=== PATIENT | male | born 1970 | race Caucasian/White ===

== ENCOUNTER 2018-05-19 20:23 | Outpatient (REF) | payer OTHER, SELFPAY ==
[2018-05-19 20:30] VITALS: BP 147/121; PULSE 115; RESP 20; TEMP 36.9; O2SAT 96
--- NOTE | 2018-05-19 20:43 | DI.RAD_ITS ---
SYMPTOM/DIAGNOSIS: ROTATIONAL INJURY, PAIN RIGHT ANKLE: Three views. No priors. No acute fracture or dislocation is identified. There does appear to be a mild periostitis at the distal shaft of the right fibula, best appreciated on the AP view. No associated soft tissue abnormality is seen. There is normal mineralization of the bone. No lytic or sclerotic lesions are seen. IMPRESSION: No acute fracture or dislocation. Mild periostitis along the distal shaft of the right fibula. This could be a chronic finding. An occult, subacute or old fracture cannot be excluded. Osteomyelitis is considered less likely.
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
--- NOTE | 2018-05-19 21:16 | DI.VRAD_ITS ---
EXAM: XR Right Ankle Complete, 3 or more Views EXAM DATE/TIME: 05/19/2018 8:43 PM CLINICAL HISTORY: 48 years old, male; Signs and symptoms; Other: Rotational injury, pain latera TECHNIQUE: XR Right ankle 3 or more views. COMPARISON: No relevant prior studies available. FINDINGS: Bones/joints: No acute fracture or subluxation. Short focus of hazy periostitis along the distal fibular diaphysis. Soft tissues: Lateral ankle soft tissue swelling. Mild generalized edema in the calf. IMPRESSION: 1. No acute bony pathology. 2. Short focus of hazy periostitis along the distal fibular diaphysis. Could relate to hyperostosis in the setting of chronic edema or venous stasis, osteomyelitis considered less likely based on morphology. Dictated and Authenticated by: Louise Alarcon MD. Ordering:ANDIE TADEO MD
[2018-05-19 21:43] LABS: Abs Immature Grans 0.05 k/cumm (0.0-0.09); Absolute Eosinophil Count 0.36 k/cumm (0.0-0.7); Absolute Lymphocyte Count 2.71 k/cumm (1.2-3.4); Absolute Monocyte Count 0.99 k/cumm (0.11-0.7); Basophils % 0.6; Eosinophils % 3.3; HCT 45.5 % (40.0-50.0); HGB 15.6 g/dL (13.5-17.5); Immature Grans % 0.5; Lymphocytes % 24.9; Mean Corp. HGB Concentration 34.3 g/dL (32.0-36.0); Mean Corpuscular Hemoglobin 28.8 pg (27.0-33.0); Mean Corpuscular Volume 84.1 fL (80-95); Mean Platelet Volume 10.1 fL (8.0-11.0); Monocytes % 9.1; Neutrophils % 61.6; Platelet Count 334 x1000/uL (130-400); RBC 5.41 m/cumm (4.50-6.00); RBC Distribution Width 13.7 % (11.8-14.1)
[2018-05-19 21:44] LABS: Absolute Basophil Count 0.07 k/cumm (0.0-0.2); Absolute Neutrophil Count 6.71 k/cumm (1.2-6.7)
[2018-05-19 22:02] LABS: ALT 30 U/L (12-78); AST 20 U/L (15-37); Albumin 3.5 g/dL (3.4-5.0); Alkaline Phosphatase 94 U/L (46-116); BUN 14 mg/dL (7-18); Bilirubin, Total 0.2 mg/dL (0.2-1.0); CREATININE 1.28 mg/dL (0.70-1.30); Chloride 100 mmol/L (98-107); Estimated GFR 59.98 (mL/min/1.73m2); Glucose 101 mg/dL (70-100); Potassium 3.7 mmol/L (3.5-5.1); Sodium 136 mmol/L (136-145); Total Protein 7.7 g/dL (6.4-8.2)
[2018-05-19 22:28] VITALS: BP 132/83; PULSE 97; RESP 18; TEMP 36.7; O2SAT 95
--- NOTE | 2018-05-21 11:21 | NUR.NOTE ---
Nursing Note: [facility] left message with patient to call and schedule a follow up appointment to establish PCP after being seen in ER.
[2018-05-28 19:58] LABS: C-Reactive Protein 1.04 mg/dL (0.0-0.3)
== END 2018-05-28 12:35 ==
LOC: NCHCN 05-28 12:15
PROVIDERS: Emergency Provider Physician Assistant; PCP Internal Medicine; Visit Provider Family Medicine
DX: M86.161 Other acute osteomyelitis, right tibia and fibula (principal); S93.401A Sprain of unspecified ligament of right ankle, initial encounter; X50.9XXA Other and unspecified overexertion or strenuous movements or postures, initial encounter
CPT/HCPCS: 29515; 36415; 80053; 99283; 73610; 85025; 86140; L1902

== ENCOUNTER 2018-08-29 12:13 | Emergency (ER) | payer OTHER, SELFPAY ==
[2018-08-29 12:15] VITALS: BP 138/101; PULSE 98; RESP 16; TEMP 36.5; O2SAT 96
--- NOTE | 2018-08-29 12:16 | W.ED.GENAD ---
Discharge Plan Disposition Patient Disposition: HOME Condition: Stable Discharge Details Chief Complaint: Orthopedic Clinical Impression: Left wrist sprain Primary Care Provider: Kendrick Gonzalez ED Provider: Karl Wilson Home Meds and New Rx's Prescriptions: Continued ibuprofen 800 mg Tablet 800 mg PO TID PRNRF: 0 Discharge Instructions Instructions: Wrist Sprain (ED) Additional Instructions: Wear the splint until you are pain free. If you are not pain free in a week see your primary care provider you can take 1000mg tylenol every 6 hours and 800mg ibuprofen every 8 hours Stand Alone Forms: Work Release Medical Decision Making 48 yo male comes in with left wrist pain. He slipped and fell back on stairs, tried to grab the railing with his left hand and missed and landed on his left wrist. Denies loc, hitting head and has no neck pain even on rom, no headache, no chest pain, dyspnea or abdominal pain. Has pain in anterior left wrist. No sweling or deformity with full rom of the wrist and hand. No snuffbox tenderness. will xray to eval for fx, suspect contusion vs sprain xray negative on my read, still no snuffbox tenderness and full rom. Do not feel he requires ortho f/u , will place in universal splint for comfort and advised f/u with pcp if not better in a week Differential Diagnosis sprain, contusion, fx Imaging Data Radiologic Study: Attestation: I personally reviewed and interpreted this imaging study as follows: Imaging: X-Ray My impression: no acute findings HPI General Mode of arrival: ambulatory. Date/Time Provider Initiated Documentation: 08/29/18 12:16. Limitations to Documentation: no limitations. Information obtained by: patient. History of Present Illness 48 year old M presents to the emergency department with the chief complaint of left wrist pain , described as moderate, Quality is described as aching, and is localized to the left and upper extremity. Patient reports no radiation. Patient started experiencing this hour(s) (1) and it has been constant. No relieving factors improve symptom(s), No exacerbating factors reported . Patient did receive the following treatments prior to arrival, NSAID Related Data Home Medications Medication Instructions Recorded Confirmed ibuprofen 800 mg PO TID PRN 05/19/18 08/29/18 Allergies Allergy/AdvReac Type Severity Reaction Status Date / Time No Known Allergies Allergy Unverified 08/29/18 12:21 General ANDERSON: 4 Review of Systems Review of Systems All systems reviewed & are unremarkable except as noted in HPI and below Constitutional Denies chills and Denies fever(s) Cardiovascular Denies chest pain and Denies dyspnea Respiratory Denies cough and Denies dyspnea Gastrointestinal Denies abdominal pain, Denies nausea and Denies vomiting Musculoskeletal Denies joint swelling Integumentary/Breasts Denies rash PFS Social History Smoking and Tabacco status: Never Exam Const General: no acute distress Orientation: alert HENPR Head: normal to inspection Ears: external ears normal General nose exam: external nose normal Mouth: moist mucous membranes Eyes General: appearance normal, both eyes and all related structures Neck Neck: normal visual inspection Resp Effort & Inspection: normal respiratory effort and able to speak in complete sentences Cardio Rate: regular rate Skin General skin exam: no rashes or lesions noted Neuro General: alert and oriented x3 Extrem General: normal to inspection, full ROM and normal capillary refill Psych Mental Status: mental status grossly normal
--- NOTE | 2018-08-29 12:23 | DI.RAD_ITS ---
SYMPTOMS/DIAGNOSIS: PAIN, S/P FALL LEFT WRIST: Three views. No priors. No bone or joint abnormality is identified. No radiopaque foreign bodies are seen in the soft tissues. IMPRESSION: No acute abnormality.
--- NOTE | 2018-08-29 12:33 | ED.GENADUL_ITS ---
Discharge Plan Disposition Patient Disposition: HOME Condition: Stable Discharge Details Chief Complaint: Orthopedic Clinical Impression: Left wrist sprain Primary Care Provider: Kendrick Gonzalez ED Provider: Karl Wilson Home Meds and New Rx's Prescriptions: Continued ibuprofen 800 mg Tablet 800 mg PO TID PRNRF: 0 Discharge Instructions Instructions: Wrist Sprain (ED) Additional Instructions: Wear the splint until you are pain free. If you are not pain free in a week see your primary care provider you can take 1000mg tylenol every 6 hours and 800mg ibuprofen every 8 hours Stand Alone Forms: Work Release Medical Decision Making 48 yo male comes in with left wrist pain. He slipped and fell back on stairs, tried to grab the railing with his left hand and missed and landed on his left wrist. Denies loc, hitting head and has no neck pain even on rom, no headache, no chest pain, dyspnea or abdominal pain. Has pain in anterior left wrist. No sweling or deformity with full rom of the wrist and hand. No snuffbox tenderness. will xray to eval for fx, suspect contusion vs sprain xray negative on my read, still no snuffbox tenderness and full rom. Do not feel he requires ortho f/u , will place in universal splint for comfort and advised f/u with pcp if not better in a week Differential Diagnosis sprain, contusion, fx Imaging Data Radiologic Study: Attestation: I personally reviewed and interpreted this imaging study as follows: Imaging: X-Ray My impression: no acute findings HPI General Mode of arrival: ambulatory . Date/Time Provider Initiated Documentation: 08/29/18 12:16 . Limitations to Documentation: no limitations . Information obtained by: patient . History of Present Illness 48 year old M pr esents to the emergency department with the chief complaint of left wrist pain , described as moderate, Quality is described as aching, and is localized to the left and upper extremity. Patient reports no radiation. Patient started experiencing this hour(s) (1) and it has been constant. No relieving factors improve symptom(s), No exacerbating factors reported . Patient did receive the following treatments prior to arrival, NSAID Related Data Home Medications Medication Instructions Recorded Confirmed ibuprofen 800 mg PO TID PRN 05/19/18 08/29/18 Allergies Allergy/AdvReac Type Severity Reaction Status Date / Time No Known Allergies Allergy Unverified 08/29/18 12:21 General ANDERSON: 4 Review of Systems Review of Systems All systems reviewed & are unremarkable except as noted in HPI and below Constitutional Denies chills and Denies fever(s) Cardiovascular Denies chest pain and Denies dyspnea Respiratory Denies cough and Denies dyspnea Gastrointestinal Denies abdominal pain, Denies nausea and Denies vomiting Musculoskeletal Denies joint swelling Integumentary/Breasts Denies rash PFS Social History Smoking and Tabacco status: Never Exam Const General: no acute distress Orientation: alert HENMT Head: normal to inspection Ears: external ears normal General nose exam: external nose normal Mouth: moist mucous membranes Eyes General: appearance normal, both eyes and all related structures Neck Neck: normal visual inspection Resp Effort & Inspection: normal respiratory effort and able to speak in complete sentences Cardio Rate: regular rate Skin General skin exam: no rashes or lesions noted Neuro General: alert and oriented x3 Extrem General: normal to inspection, full ROM and normal capillary refill Psych Mental Status: mental status grossly normal
== END 2018-08-29 12:53 | disposition home or self-care (01) ==
PROVIDERS: Emergency Provider Emergency Medicine; PCP Internal Medicine
DX: S63.502A Unspecified sprain of left wrist, initial encounter (principal); W00.1XXA Fall from stairs and steps due to ice and snow, initial encounter; X50.9XXA Other and unspecified overexertion or strenuous movements or postures, initial encounter
CPT/HCPCS: 99283; 73110; L3908

== ENCOUNTER 2020-09-07 02:51 | Outpatient (CLI) | payer OTHER, SELFPAY ==
[2020-09-07 10:14] LABS: CREATININE 1.3 mg/dL (0.70-1.30); Calculated LDL 202 mg/dL (<100); Cholesterol 283 mg/dL (<200); Estimated GFR 58.43 (mL/min/1.73m2); HDL Cholesterol 40 mg/dL (40-60); TSH (W/Ref FT4) 2.34 uIU/mL (0.36-3.74); Triglyceride 208 mg/dL (<150)
[2020-09-07 18:18] LABS: PSA, Screening 0.5 ng/mL (0.0-3.5)
== END 2020-09-07 02:52 | disposition home or self-care (01) ==
LOC: LBO 02:52
PROVIDERS: PCP Nurse Practitioner Family; Visit Provider Nurse Practitioner Family
DX: Z13.220 Encounter for screening for lipoid disorders (principal); Z13.1 Encounter for screening for diabetes mellitus; Z13.29 Encounter for screening for other suspected endocrine disorder; Z12.5 Encounter for screening for malignant neoplasm of prostate; I10 Essential (primary) hypertension
CPT/HCPCS: 36415; 80061; 84153; 82565; 83036; 84443

== ENCOUNTER 2020-10-18 20:55 | Emergency (ER) | payer OTHER, SELFPAY ==
[2020-10-18] VITALS (12 sets, daily range): BP systolic 165–197; BP diastolic 110–136; PULSE 106–112; RESP 12–25; TEMP 36.9; O2SAT 96–98
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
[2020-10-18 21:09] LABS: Abs Immature Grans 0.06 10^3/uL (0.0-0.06); Absolute Basophil Count 0.05 10^3/uL (0.0-0.2); Absolute Eosinophil Count 0.34 10^3/uL (0.0-0.7); Absolute Lymphocyte Count 4.01 10^3/uL (1.2-3.4); Absolute Monocyte Count 1.07 10^3/uL (0.1-0.8); Basophils % 0.4; HCT 45.3 % (40.0-50.0); Immature Grans % 0.5; Lactate 1.7 mmol/L (0.6-1.4); Lymphocytes % 35.3; MCH 28.5 pg (27.0-33.0); MCHC 33.1 % (32.0-36.0); MCV 86.1 fL (80-95); MPV 9.8 fL (8.0-11.0); Monocytes % 9.4; Neutrophils % 51.4; Nucleated RBC 0 %; Platelet Count 334 10^3/uL (130-400); RBC 5.26 10^6/uL (4.36-5.78); RDW 13.3 % (11.8-14.1); RDW-SD 41.9 fL; WBC 11.36 10^3/uL (4.4-10.8)
--- NOTE | 2020-10-18 21:19 | NUR.NOTE ---
Nursing Note: Pt Radha called 5 times without answer atrequest of pt. Radha answers on 6th call, updated with care and incident.Pt to call his back when return from CT.
[2020-10-18] MEDS: Omnipaque 350 MG/ML 100 ML BTL IV (21:20)
[2020-10-18] MEDS: Normal Saline - Diluent 50 ML VIAL IV (21:21)
[2020-10-18 21:22] LABS: Absolute Neutrophil Count 5.84 10^3/uL (1.2-6.7)
[2020-10-18] MEDS: Normal Saline Flush 10 ML SYR IVP (21:22)
[2020-10-18 21:26] LABS: ALT 36 U/L (16-63); AST 21 U/L (15-37); Albumin 3.6 g/dL (3.4-5.0); Alkaline Phosphatase 92 U/L (46-116); Anion Gap 10.7 mmol/L (3-11); BUN 15 mg/dL (7-18); Bilirubin, Total 0.2 mg/dL (0.2-1.0); CO2 28.3 mmol/L (21.0-32.0); CREATININE 1.4 mg/dL (0.70-1.30); Calcium 9.1 mg/dL (8.5-10.1); Chloride 102 mmol/L (98-107); Estimated GFR 53.64 (mL/min/1.73m2); Glucose 102 mg/dL (74-106); Lipase 88 U/L (73-393); Potassium 3.7 mmol/L (3.5-5.1); Sodium 141 mmol/L (136-145); Total Protein 7.8 g/dL (6.4-8.2)
[2020-10-18] MEDS: Normal Saline 1,000 ML 1000 ML IV (21:40)
--- NOTE | 2020-10-18 21:53 | NUR.NOTE ---
Nursing Note: Pt reports his two BP medications he has picked up and is at home and has not taken.
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
[2020-10-18] MEDS: Ketorolac 30 MG/ML VIAL IVP (22:17)
[2020-10-18 22:27] LABS: Bilirubin Negative (Negative); Blood Negative (Negative); Clarity Clear (Clear); Glucose Negative (Negative); Ketones Negative (Negative); Leukocyte Esterase Negative (Negative); Nitrite Negative (Negative); Urobilinogen 0.2 EU/dL (Up TO 0.2)
== END 2020-10-18 22:46 | disposition home or self-care (01) ==
PROVIDERS: Emergency Provider Student in an Organized Health Care Education/Training Program; PCP Nurse Practitioner Family
DX: S30.1XXA Contusion of abdominal wall, initial encounter (principal); V43.52XA Car driver injured in collision with other type car in traffic accident, initial encounter; R10.32 Left lower quadrant pain
CPT/HCPCS: 36415; 80053; 83690; 96361; 96374; 99285; 74177; 81003; 83605; 85025; J1885; J3490

== ENCOUNTER 2021-08-28 20:06 | Emergency (ER) | payer OTHER, SELFPAY ==
[2021-08-28 20:16] VITALS: BP 158/105; PULSE 97; RESP 18; TEMP 36.5; O2SAT 97
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
[2021-08-28] MEDS: predniSONE 20 MG TAB 40 MG PO (21:08)
== END 2021-08-28 22:31 | disposition home or self-care (01) ==
PROVIDERS: Emergency Provider Physician Assistant; PCP Nurse Practitioner Family
DX: M10.071 Idiopathic gout, right ankle and foot (principal)
CPT/HCPCS: 99283; J7512

== ENCOUNTER 2021-08-30 15:14 | Outpatient (REF) | payer OTHER, SELFPAY ==
[2021-08-30 17:57] LABS: Uric Acid 6.3 mg/dL (3.5-7.2)
== END 2021-08-30 15:15 | disposition home or self-care (01) ==
LOC: LBN 15:14
PROVIDERS: PCP Nurse Practitioner Family; Visit Provider Nurse Practitioner Family
DX: M10.9 Gout, unspecified (principal)
CPT/HCPCS: 84550

== ENCOUNTER 2021-11-01 16:16 | Outpatient (REF) | payer OTHER, SELFPAY ==
[2021-11-03 12:27] LABS: COVID-19 RT-PCR UVMMC Result Negative (Negative)
== END 2021-11-01 16:17 | disposition home or self-care (01) ==
LOC: LBN 16:16
PROVIDERS: PCP Nurse Practitioner Family; Visit Provider Nurse Practitioner Family
DX: Z20.822 Contact with and (suspected) exposure to COVID-19 (principal)
CPT/HCPCS: U0003

== ENCOUNTER 2022-11-19 15:23 | Outpatient (CLI) | payer OTHER, SELFPAY ==
--- NOTE | 2022-11-19 14:30 | DI.RAD_ITS ---
Exam(s) XR FINGER RT MIDDLE EXAM: XR FINGER RT MIDDLE CLINICAL HISTORY: proximal right 3rd finger pain,[id number]. TECHNIQUE: 2D digital imaging was performed. Three views. COMPARISON: No exams were available for comparison FINDINGS: BONES: No acute fracture is present. No bony destructive lesion is seen. JOINTS: No dislocation present. Minimal degenerative changes of the interphalangeal joints and metac arpophalangeal joints. SOFT TISSUE: Normal. IMPRESSION: Minimal degenerative changes. DATA REPOSITORY: RADIATION DOSE DELIVERED:
== END 2022-11-19 15:43 ==
LOC: DI 15:30
PROVIDERS: PCP Nurse Practitioner Family; Visit Provider Physician Assistant
DX: M79.644 Pain in right finger(s) (principal)
CPT/HCPCS: 73140

== ENCOUNTER 2023-01-29 16:02 | Outpatient (CLI) | payer OTHER, SELFPAY ==
--- NOTE | 2023-01-29 11:15 | DI.RAD_ITS ---
Exam(s) XR LUMBAR SPINE COMPLETE EXAM: XR LUMBAR SPINE COMPLETE CLINICAL HISTORY: evaluate pathology,lumbar strain,s39.012a. TECHNIQUE: 2D digital imaging was performed of the lumbar spine. Five images were obtained. AP, la teral, right oblique, left oblique and L5-S1 spot views were obtained. COMPARISON: No exams were available for comparison FINDINGS: BONES: No fracture or destructive lesion. There are small endplate osteophytes seen at L3-4 and L4-L5 . Mild degenerative changes of the facets are seen at L5-S1. DISKS: Intervertebral disc spaces are maintained. ALIGNMENT: Lumbar spinal alignment is within normal limits. No spondylolysis or spondylolisthesis. SOFT TISSUE: Normal. IMPRESSION: Mild degenerative changes in the lumbar spine. DATA REPOSITORY: RADIATION DOSE DELIVERED:
== END 2023-01-29 16:22 ==
LOC: DI 16:05
PROVIDERS: PCP Nurse Practitioner Family; Visit Provider Nurse Practitioner Family
DX: S39.012A Strain of muscle, fascia and tendon of lower back, initial encounter (principal); M51.36 Other intervertebral disc degeneration, lumbar region; X58.XXXA Exposure to other specified factors, initial encounter
CPT/HCPCS: 72110

== ENCOUNTER 2023-08-22 21:38 | Emergency (ER) | payer SELFPAY ==
[2023-08-22 21:40] VITALS: BP 200/119; PULSE 98; RESP 16; TEMP 37.3; O2SAT 97
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
== END 2023-08-22 22:10 | disposition home or self-care (01) ==
PROVIDERS: Emergency Provider Physician Assistant; PCP Nurse Practitioner Family
DX: M25.531 Pain in right wrist (principal); M77.8 Other enthesopathies, not elsewhere classified
CPT/HCPCS: 99282; 99283

== ENCOUNTER 2024-04-09 21:01 | Emergency (ER) | payer BC, SELFPAY ==
[2024-04-09 21:03] VITALS: BP 146/109; PULSE 112; RESP 18; TEMP 36.1
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
[2024-04-09 21:55] VITALS: BP 159/120; PULSE 104; RESP 18; O2SAT 96
[2024-04-09] MEDS: Cetirizine 10 MG TAB PO (21:55)
[2024-04-09] MEDS: Triamcinolone 0.1% OINT 15 GM TUBE TP (21:55)
== END 2024-04-09 21:58 | disposition home or self-care (01) ==
LOC: ER 21:47
PROVIDERS: Emergency Provider Nurse Practitioner Family; PCP Nurse Practitioner Family
DX: R21 Rash and other nonspecific skin eruption (principal)
CPT/HCPCS: 99283

== ENCOUNTER 2024-04-20 16:28 | Outpatient (CLI) | payer BC, SELFPAY ==
[2024-04-20 16:57] LABS: ALT 23 U/L (16-63); AST 15 U/L (15-37); Albumin 3.2 g/dL (3.4-5.0); Alkaline Phosphatase 89 U/L (46-116); Anion Gap 7.7 mmol/L (3-11); BUN 9 mg/dL (7-18); Bilirubin, Total 0.36 mg/dL (0.2-1.0); CO2 29.3 mmol/L (21.0-32.0); CREATININE 1.1 mg/dL (0.70-1.30); Calculated LDL 99 mg/dL (<100); Chloride 105 mmol/L (98-107); Cholesterol 191 mg/dL (<200); Estimated GFR 79.77 (mL/min/1.73m2); Glucose 101 mg/dL (74-106); HDL Cholesterol 43 mg/dL (40-60); Sodium 142 mmol/L (136-145); TSH (W/Ref FT4) 1.51 uIU/mL (0.36-3.74); Total Protein 7.2 g/dL (6.4-8.2); Triglyceride 246 mg/dL (<150)
== END 2024-04-20 16:29 | disposition home or self-care (01) ==
LOC: LBO 16:36
PROVIDERS: PCP Nurse Practitioner Family; Visit Provider Nurse Practitioner Family
DX: Z13.220 Encounter for screening for lipoid disorders (principal); E78.5 Hyperlipidemia, unspecified; E66.09 Other obesity due to excess calories; Z68.37 Body mass index [BMI] 37.0-37.9, adult; I10 Essential (primary) hypertension
CPT/HCPCS: 36415; 80053; 80061; 84443

== ENCOUNTER 2024-05-29 07:12 | Day surgery (SDC) | payer BC, SELFPAY ==
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
--- NOTE | 2024-05-28 21:42 | W.COLOREPORT ---
Date of service: 05/29/24 Time of Service: 10:00 Colonoscopy Report Date of procedure: 05/29/24 Pre-op diagnosis general: CRC screen/constipation Post-op diagnosis procedure note: other Surgeon: Vikki Quiñonez Anesthesia Type: General:No Airway Complications: None Disposition: same day Prep: Miralax/Dulcolax Procedure Description: After informed consent was obtained, explaining risks of the procedure, including but not limits to: bleeding, infections, complications of anesthesia, perforations (which may require antibiotics and /or surgery and stay in the hospital), and abdominal pain/cramping. The patient was taken to the procedure room and placed in a left decubitous position. Monitors were applied and a time out was done. The patients name, date of , procedure, allergies to medications and metal in their body was reviewed. The patient was then sedated. Once sedated and comfortable a rectal exam was done. External exam was normal. Internal exam revealed a normal sphincter tone and no palpable masses. The prostate: no palpable masses. The previously lubricated Olympus scope was then introduced (see RN notes for scope number) and retrofelexed. No internal hemorrhoids were identified. The scope was then advanced to the cecum without difficulty. The TI and appendiceal orifice were identified. The scope was then slowly retracted over 23 minutes back into the rectum. Polyps: peduculated 1.5cm polyp on a long thin stalk at 80cm. This was removed with a hot snare. All of the specimen was retrieved. A clip is placed across the defect This will be sent to pathology. There is no bleeding noted from the polypectomy site. Diverticula: pt had a moderate amount of small mouthed diverticula in the sigmoid colon. There were no signs of active bleeding or infection. The mucosa is pink and healthy w/ a normal vascular pattern. The scope was removed, and the patient was woken up and taken back to Same day surgery in stable condition. The patient tolerated the procedure well and there were no immediate complications. Follow up: The patient should follow up in 2-3 years, path pd, unless they develop changes in bowel habits or other new gastrointestinal complaints. [place] Bowel Prep [place] Bowel Prep Right Colon: 3 Left Colon: 3 Transverse Colon: 3 Total Score: 9
--- NOTE | 2024-05-28 21:43 | PDOC.DSDIS_ITS ---
Date of service: 05/29/24 Time of Service: 10:05 Discharge Plan Disposition Patient Disposition: Home Condition: Good Discharge Details Reason For Visit: CRC screening Attending Provider: Vikki Quiñonez Primary Care Provider: Joel Arboleda Home Meds and New Rx's Prescriptions: Continued triamcinolone acetonide 0.5 % cream 1 applic topical TID Qty: 15 0RF losartan 100 mg tablet 100 mg PO DAILY Qty: 90 4RF hydrochlorothiazide 12.5 mg capsule 12.5 mg PO DAILY Qty: 90 3RF atorvastatin 10 mg tablet 10 mg PO DAILY Qty: 90 3RF acetaminophen [Tylenol Extra Strength] 500 mg tablet 1,000 mg PO Q6H PRN albuterol sulfate [Ventolin HFA] 90 mcg/actuation HFA aerosol inhaler 2 puff inhalation Q6H PRN (Reason: shortness of breath or wheezing) Qty: 8.5 3RF semaglutide (weight loss) 0.5 mg/0.5 mL pen injector 0.5 mg subcut QWEEK Qty: 2 0RF Rx Instructions: administer weeks 1 through 4 of therapy desloratadine 5 mg tablet 5 mg PO DAILY Qty: 90 3RF colchicine 0.6 mg tablet 0.6 mg PO BID PRN ibuprofen 800 mg Tablet 800 mg PO TID PRN Discontinued polyethylene glycol 3350 17 gram/dose powder 238 g PO ONCE Qty: 238 0RF Rx Instructions: take per colonoscopy instructions bisacodyl [Dulcolax (bisacodyl)] 5 mg tablet,delayed release (DR/EC) 5 mg PO ONCE Qty: 4 0RF Rx Instructions: take per colonoscopy instructions Discharge Instructions Additional Instructions: [facility] Colonoscopy Post- Op Instructions Instructions for Everyone who is given Anesthesia: For your safety, please do the following for the next twenty-four (24) hours: *Do Not operate a motor vehicle (car, truck, motorcycle, etc.) *Do Not drink alcoholic beverages or use any recreational drugs for the first 24 hours or while taking pain medications. The medications in your body may have a reaction that can be dangerous. *Do Not make any important decisions or sign any important papers. Findings: Large colon polyp Diverticula. Make sure you are moving your bowels on a regular basis and not straining. If you find you having problems with constipation or straining, then it is recommended you start a fiber product daily such as Metamucil Follow up: My office will send you a letter with the results of the pathology and when we want you to repeat the colonoscopy. Most likely 1 to 2 years time. -Okay to resume Ozempic on Saturday 1. No lifting over 20 pounds or strenuous activity for the first 24 hours after your procedure. After 24 hours there are no restrictions on your activity but you may feel fatigued for a few days. 2. After you arrive home you may have a light meal and return to your normal diet as you can tolerate it without feeling sick to your stomach. 3. You may have a bloated, gaseous feeling in your belly (abdomen) after a colonoscopy. Passing gas and belching will help. Walking or lying down on your left side with your knees flexed may relieve the discomfort. Call the office at [phone] (Office) or [phone] (Hospital) right away if you notice any of the following: a.Vomiting of blood or ?coffee ground stools?. b.Rectal bleeding 1Tbsp, blood clots or continuous bleeding. c.Severe belly (abdominal) pain. d.A hard distended belly (abdomen) and an inability to pass gas. 4. Please don?t expect to have a normal BM (bowel movement) for 2-3 days after your procedure. 5. If there are questions regarding the findings of your procedure, please contact your doctor 6. If you are unable to contact your doctor with a problem, contact the hospital at [phone]. 7. Continue all your regular medications unless directed otherwise. I understand the above instructions and have no questions. Signature of Patient or Adult Escort Name of Responsible Adult Escort Signature of Nurse Date/Time Stand Alone Forms: Anesthesia Discharge Inst., Ayleen Toussaint ([facility]) Activity:: see above Diet:: see above Discharge Orders Discharge Orders: Discharge Order (Routine); Ordered 05/29/24 Ordered By: Vikki Quiñonez DS: Diagnosis Discharge Diagnosis (1) HTN (hypertension): Status: Chronic (2) Hyperlipidemia: Status: Acute (3) Pre-diabetes: Status: Acute (4) Obesity: Status: Chronic (5) GERD (gastroesophageal reflux disease): Status: Chronic (6) Umbilical hernia: Status: Acute (7) Asthma: Status: Chronic (8) Chronic constipation: Status: Acute Asessment and Plan: The patient is seen and examined after their colonoscopy.? The patient has been able to pass gas.? They are not having abdominal pain.? They have been able to tolerate liquids and a snack.? They do not have any nausea or vomiting.? They are not having any chest pain or shortness of breath.??? They are not having any rectal bleeding. Their vital signs have been stable-see nursing notes. We discussed findings during their colonoscopy, and any biopsies that were done/polyps that were removed. The patient will be sent a letter with any biopsy results, and when to repeat the colonoscopy.-see discharge instructions. Patient was given explicit instructions to follow-up regarding colonoscopy-refer to discharge instructions.? We reviewed resumption of medications. Patient verbalized understanding and discharged in stable and satisfactory condition- See nursing notes. (9) Villous adenoma of colon: Status: Acute
[2024-05-29 07:31] VITALS: BP 143/88; PULSE 94; RESP 18; TEMP 36.4; O2SAT 96
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
[2024-05-29 08:01] VITALS: BMI 38.3
--- NOTE | 2024-05-29 09:17 | BOWEL_PTH ---
PATIENT: Karl Finney JR LOC: [facility] U#:[id number] AGE/SX: 54/M ROOM: RE05/29/[address]: Vikki Quiñonez : 1970 BED: DIS: 05/29/2024 SPEC #: [id number] RECD: 05/29/24 13:02 STATUS: JOSE MANUEL REEduarda #: [id number] RATNA: 05/29/24 09:[address]: Vikki Quiñonez DEPT: Surgical Specimen RECD BY: Helen George ENTERED: 05/29/24 13:03 SP TYPE: Bowel OTHR DR: Joel Arboleda, PHOTOGRAPHIC LABORATORY TECHNICIAN Tissues: 1 - BIOPSY BOWEL Procedures: GROSS AND MICRO LEVEL 4 Comments: [id number]
[2024-05-29 09:39] VITALS: BP 120/85; PULSE 88; RESP 16; TEMP 36.1; O2SAT 95
--- NOTE | 2024-05-29 09:48 | W.ANESPOSTOP ---
Postoperative Evaluation Date, Time and Location Date Performed: 05/29/24 Time Performed: 09:40 Patient Location: Day Surgery Unit Vital Signs Most Recent Imported Vital Signs: Most Recent Vital Signs Temp Pulse Resp BP Pulse Ox 36.1 C L 88 16 120/85 95 05/29/24 09:39 05/29/24 09:39 05/29/24 09:39 05/29/24 09:39 05/29/24 09:39 Pain Score Most Recent Pain Score: Most Recent Pain Score Pain Level 0 05/29/24 09:39 Assessment Mental Status: Awake (Alert & Oriented to Patient Baseline) Airway and Respiratory Function: Patent airway with normal (patient baseline) respiratory exam Cardiovascular Function: Hemodynamically Stable Hydration Status: Adequately Hydrated Nausea & Vomiting: No Nausea or Vomiting Pain: Pt. Denies Any Pain Peripheral Nerve Block: Patient did not receive a nerve block
[2024-05-29 10:15] VITALS: BP 125/84; PULSE 82; RESP 16; TEMP 36; O2SAT 95
== END 2024-05-29 10:48 | disposition home or self-care (01) ==
LOC: SUR 07:12
PROVIDERS: PCP Nurse Practitioner Family; Visit Provider Surgery
PROC: 0DJD8ZZ Inspection of Lower Intestinal Tract, Via Natural or Artificial Opening Endoscopic (ICD-10-PCS; CPT 45378; principal; 2024-05-29 08:45)
DX: I10 Essential (primary) hypertension (principal); R73.03 Prediabetes; Z12.11 Encounter for screening for malignant neoplasm of colon; D12.4 Benign neoplasm of descending colon; K57.30 Diverticulosis of large intestine without perforation or abscess without bleeding
CPT/HCPCS: 45385; 88305; J2003; J2704

== ENCOUNTER 2024-09-17 12:53 | Outpatient (CLI) | payer OTHER, SELFPAY ==
--- NOTE | 2024-09-17 09:45 | DI.RAD_ITS ---
Exam(s) XR SHOULDER RT COMPLETE 2+V EXAM: XR SHOULDER RT COMPLETE 2+V CLINICAL HISTORY: eval pathology Pain in Rt deaner M25.511. TECHNIQUE: 2D digital imaging was performed. COMPARISON: No exams were available for comparison FINDINGS: Four views No evidence of fracture or dislocation nor significant soft tissue calcifications. Subacromial space unremarkable. There are no degenerative changes in the glenohumeral and AC joints. Bone density no rmal. No osseous lesions. Clavicle unremarkable. IMPRESSION: No significant osseous findings in the shoulder. DATA REPOSITORY: RADIATION DOSE DELIVERED:
--- NOTE | 2024-09-17 09:46 | DI.RAD_ITS ---
Exam(s) XR CLAVICLE RT EXAM: XR CLAVICLE RT CLINICAL HISTORY: eval pathology Rt shoulder Pain M25.511. TECHNIQUE: 2D digital imaging was performed. COMPARISON: No exams were available for comparison FINDINGS: Two views. No evidence of fracture nor dislocation of the clavicle. AC joint appears unremarkable. Bone densit y normal. No osseous lesions IMPRESSION: Unremarkable appearing right clavicle. DATA REPOSITORY: RADIATION DOSE DELIVERED:
== END 2024-09-17 13:13 ==
PROVIDERS: PCP Nurse Practitioner Family; Visit Provider Nurse Practitioner Family
DX: M25.511 Pain in right shoulder (principal); M89.8X1 Other specified disorders of bone, shoulder
CPT/HCPCS: 73000; 73030

== ENCOUNTER 2025-04-13 11:47 | Emergency (ER) | payer OTHER, SELFPAY ==
[2025-04-13 11:51] VITALS: BP 146/86; PULSE 88; RESP 18; TEMP 36.4; O2SAT 96
--- NOTE | 2025-04-13 13:00 | DI.RAD_ITS ---
Exam(s) XR RIBS LT W PA LAT CHEST EXAM: XR RIBS LT W PA LAT CHEST CLINICAL HISTORY: left rib pain post lifting. TECHNIQUE: 2D digital imaging was performed. COMPARISON: No exams were available for comparison FINDINGS: Total 8 views Left rib cage-6 views: There are no obvious left rib fractures nor rib lesions. Chest x-ray-two views (PA and lateral): Heart size normal. Mediastinum not widened. Left lung is clear. Mild increased markings noted in the right lung base which are probably vascular. There is no pneumothorax. No fractures evident. IMPRESSION: No significant acute pulmonary findings No left rib fractures identified. DATA REPOSITORY: RADIATION DOSE DELIVERED:
--- NOTE | 2025-04-13 13:00 | DI.RAD_ITS ---
Exam(s) XR LUMBAR SPINE AP, LAT EXAM: XR LUMBAR SPINE AP, LAT CLINICAL HISTORY: heavy lifting, felt pop. TECHNIQUE: 2D digital imaging was performed. COMPARISON: CR XR LUMBAR SPINE COMPLETE from 01/29/2023 FINDINGS: 3 views No evidence of fracture, listhesis, nor pars interarticularis defects. There is moderate disc space narrowing at L4-5 level again noted as well as at L3-4 and L5-S1 levels. Mild anterior osseous lipping again noted L2-3. Bone density normal. No osseous lesions. No scoliosis. Facet joints appear unremarkable. SI joints unremarkable. Spina bifida occulta at S1 level is again noted. IMPRESSION: No acute osseous findings on these three views of the lumbosacral spinal column. DATA REPOSITORY: RADIATION DOSE DELIVERED:
[2025-04-13 15:29] VITALS: BP 157/109; PULSE 83; RESP 16; TEMP 36.2; O2SAT 97
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
== END 2025-04-13 15:32 | disposition home or self-care (01) ==
PROVIDERS: Emergency Provider Physician Assistant; PCP Nurse Practitioner Family
DX: M54.9 Dorsalgia, unspecified (principal); X50.0XXA Overexertion from strenuous movement or load, initial encounter
CPT/HCPCS: 99284; 99283; 71046; 71100; 72100

== ENCOUNTER 2025-06-04 06:49 | Day surgery (SDC) | payer OTHER, SELFPAY ==
--- NOTE | 2025-06-03 14:13 | PDOC.DSDIS_ITS ---
Date of service: 06/04/25 Discharge Plan Disposition Patient Disposition: Home Condition: Good Discharge Details Reason For Visit: Screening colonoscopy Attending Provider: Ozzie Jacobsen Primary Care Provider: Joel Arboleda Home Meds and New Rx's Prescriptions: Continued triamcinolone acetonide 0.5 % cream 1 applic topical TID Qty: 15 0RF cyclobenzaprine 5 mg tablet 5 mg PO TID PRN (Reason: muscle spasm) Qty: 10 0RF atorvastatin 10 mg tablet 10 mg PO DAILY Qty: 90 3RF hydrochlorothiazide 12.5 mg capsule 12.5 mg PO DAILY Qty: 90 3RF losartan 100 mg tablet 100 mg PO DAILY Qty: 90 4RF acetaminophen [Tylenol Extra Strength] 500 mg tablet 1,000 mg PO Q6H PRN albuterol sulfate [Ventolin HFA] 90 mcg/actuation HFA aerosol inhaler 2 puff inhalation Q6H PRN (Reason: shortness of breath or wheezing) Qty: 8.5 3RF desloratadine 5 mg tablet 5 mg PO DAILY Qty: 90 3RF tirzepatide (weight loss) 7.5 mg/0.5 mL pen injector 7.5 mg subcut QWEEK Qty: 2 0RF meclizine 25 mg tablet 25 mg PO PRN colchicine 0.6 mg tablet 0.6 mg PO BID PRN ibuprofen 800 mg Tablet 800 mg PO TID PRN Discontinued bisacodyl [Dulcolax (bisacodyl)] 5 mg tablet,delayed release (DR/EC) 5 mg PO ONCE Qty: 4 0RF Rx Instructions: Take per colonoscopy instructions provided by ordering providers office polyethylene glycol 3350 17 gram/dose powder 17 g PO ONCE Qty: 238 0RF Rx Instructions: Take per colonoscopy instructions provided by ordering providers office Discharge Instructions Instructions: Colon polyps, Diverticulosis Additional Instructions: Karl, it was good to see you today, and hope you feel well after the colonoscopy. Things went very smoothly. Your prep was excellent, and I could see everything fine. I did find, removed, 2 polyps today. These are much smaller than the report of your previous polyps. I removed these both today, and I will send them to the pathologist for their review. Assuming they are similar to the last polyps that you had removed I think it would be fine to move to a 3-year interval for your next colonoscopy. But let me see the results of the pathology report before committing to that. If you need anything in the meantime, please do not hesitate to call, otherwise the office will be in touch once we have that information. 1. If tolerated, consume a soft, low fiber diet for 1-2 days. 2[address] Do not drive, drink alcohol, operate machinery, make critical decisions, or do activities that require coordination or balance for 24 hours. 3. Because air was put into your colon during the procedure, expelling air from your rectum (passing gas or farting) is normal. 4. You may not have a bowel movement for 1-3 days because of the colonoscopy prep. This is normal. 5. Go directly to the emergency room if you notice any of the following: Develop chills (warm to touch), or if you have a thermometer and your temperature is above 101 Difficulty breathing or difficultly swallowing Persistent vomiting Severe abdominal pain, other than gas cramps Severe chest pain Black, tarry stools Any bleeding – exceeding one tablespoon 6. Call your physician if the site where your intravenous was started becomes re d, swollen, painful, and warm to touch. 7. Your physician has reviewed your pre-procedure medications. Please continue to take those medications as previously ordered. You will be given specific information/education regarding any changes to your medications before leaving. Stand Alone Forms: Anesthesia Discharge Inst., Ayleen Toussaint (DSU), Portal Information Activity:: Activity as Tolerated Diet:: As Tolerated Discharge Orders Discharge Orders: Discharge Order (Routine); Ordered 06/03/25 Ordered By: Ozzie Jacobsen DS: Diagnosis Discharge Diagnosis (1) Encounter for screening colonoscopy: Status: Acute Asessment and Plan: Follow-up on polypectomy results
--- NOTE | 2025-06-03 14:14 | W.COLOREPORT ---
Date of service: 06/04/25 Time of Service: 08:50 Colonoscopy Report Date of procedure: 06/04/25 Pre-op diagnosis general: Screening colonoscopy Post-op diagnosis procedure note: other (Colon polyps, diverticulosis) Procedure: Colonoscopy with polypectomy Surgeon: Ozzie Jacobsen Anesthesia Type: General:No Airway Estimated blood loss (mL): 5 Pathology: other (0.5 cm pedunculated cecal polyp, 0.5 cm pedunculated ascending colon polyp) Complications: None Disposition: same day Indications: Karl is a 55-year-old male with a history of a large adenomatous polyp who is undergoing his next screening colonoscopy Prep: Miralax/Dulcolax Procedure Start Time: 08:20 Procedure End Time: 08:37 Retraction Time: 11 Findings: 0.5 cm pedunculated cecal polyp, 0.5 cm pedunculated ascending colon polyp Procedure Description: After the induction of anesthesia, and with the patient in left lateral decubitus position, I began by performing an external anorectal exam. Perineum and skin were normal, as was the anal verge. There was no evidence of external hemorrhoids. Next, I performed a digital rectal exam. I did not appreciate any abnormal findings. Next, I advanced a colonoscope into the rectal vault. I performed retroflexion. This appeared normal. Using irrigation, I then advanced the colonoscope beyond the rectal folds and into the sigmoid colon before advancing towards the cecum. There is sigmoid diverticulosis. I found a 0.5 cm pedunculated polyp in the ascending colon. This was removed with cold snare polypectomy with minimal bleeding. Resection was complete, and the specimen was secured. I continued advancing down towards the cecum. The scope was noted to be in the cecum by identification of the ileocecal valve and appendiceal orifice. At the base of the cecum was another 0.5 cm pedunculated polyp. This was also removed completely with cold snare polypectomy. There is minimal bleeding at this site as well. I then began withdrawing the colonoscope using repeated irrigation as necessary for full evaluation of the colonic mucosa. Once the scope was withdrawn to the level of the rectum, great care was taken to examine portions of the rectal folds. Finally, the scope was withdrawn and the patient was brought to the same-day surgery recovery unit as the anesthetic wore off. The findings and instructions were shared with the patient prior to discharge. [facility] [place] Bowel Prep [facility] [place] Bowel Prep Right Colon: 3 Left Colon: 3 Transverse Colon: 3 Total Score: 9
[2025-06-04 07:01] VITALS: BP 150/106; PULSE 81; RESP 17; TEMP 36.5; O2SAT 94
[2025-06-04] MEDS: Lactated Ringers 1,000 ML 80 ML IV (07:20)
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
[2025-06-04 08:09] VITALS: BMI 33.7
--- NOTE | 2025-06-04 08:25 | BOWEL_PTH ---
PATIENT: Karl Finney JR LOC: [facility] U#:[id number] AGE/SX: 55/M ROOM: RE06/04/[address]: Ozzie Jacobsen MD : [id number] BED: DIS: 06/04/2025 SPEC #: [id number] RECD: 06/04/25 12:43 STATUS: JOSE MANUEL RE #: [id number] RATNA: 06/04/25 08:[address]: Ozzie Jacobsen DEPT: Surgical Specimen RECD BY: Heeln George ENTERED: 06/04/25 12:43 SP TYPE: Bowel OTHR DR: Joel Arboleda, HEAD [employer] Tissues: 1 - BIOPSY BOWEL 2 - BIOPSY BOWEL Procedures: GROSS AND MICRO LEVEL 4 Comments: [id number]
[2025-06-04 08:42] VITALS: BP 104/70; PULSE 89; RESP 16; TEMP 36.4; O2SAT 94
--- NOTE | 2025-06-04 08:55 | W.ANESPOSTOP ---
Postoperative Evaluation Date, Time and Location Date Performed: 06/04/25 Time Performed: 08:56 Patient Location: Day Surgery Unit Vital Signs Most Recent Imported Vital Signs: Most Recent Vital Signs Temp Pulse Resp BP Pulse Ox 36.4 C L 89 16 104/70 94 06/04/25 08:42 06/04/25 08:42 06/04/25 08:42 06/04/25 08:42 06/04/25 08:42 Pain Score Most Recent Pain Score: Most Recent Pain Score Pain Level 0 06/04/25 07:01 Assessment Mental Status: Awake (Alert & Oriented to Patient Baseline) Airway and Respiratory Function: Patent airway with normal (patient baseline) respiratory exam Cardiovascular Function: Hemodynamically Stable Hydration Status: Adequately Hydrated Nausea & Vomiting: No Nausea or Vomiting Pain: Pt. Denies Any Pain Peripheral Nerve Block: Patient did not receive a nerve block
[2025-06-04 09:10] VITALS: BP 112/83; PULSE 86; RESP 16; TEMP 36.4; O2SAT 94
== END 2025-06-04 09:16 | disposition home or self-care (01) ==
LOC: SUR 06:49
PROVIDERS: PCP Nurse Practitioner Family; Visit Provider Surgery
PROC: 0DJD8ZZ Inspection of Lower Intestinal Tract, Via Natural or Artificial Opening Endoscopic (ICD-10-PCS; CPT 45378; principal; 2025-06-04 08:15)
DX: Z12.11 Encounter for screening for malignant neoplasm of colon (principal); D12.2 Benign neoplasm of ascending colon; K57.30 Diverticulosis of large intestine without perforation or abscess without bleeding
CPT/HCPCS: 45385; 88305; J2003; J2704